=== PATIENT | male | born 1975 | race African-American/Black ===

== ENCOUNTER 2017-08-05 17:24 | Emergency (ER) | payer OTHER ==
[~2017-08-05] VITALS: Ht 175.3 cm; Wt 82.3 kg
[~2017-08-05 17:24] MED LIST: TYLENOL WITH C1 EACH PO
[2017-08-05] MEDS ORDERED: VALIUM5 MG PO (18:02)
[2017-08-05] MEDS ORDERED: PREDNISONE10 MG PO (18:02)
[2017-08-05 18:33] VITALS: BP 118/78
== END 2017-08-05 18:34 | disposition home or self-care (01) ==
LOC: EME 17:24
DX: S33.5XXA Sprain of ligaments of lumbar spine, initial encounter (principal); F17.200 Nicotine dependence, unspecified, uncomplicated
CPT/HCPCS: 99281; 99284